=== PATIENT | male | born 1965 | race Caucasian/White ===

== ENCOUNTER → 2017-01-13 | Outpatient (REF) ==
--- NOTE | 2017-01-13 16:23 | Diagnostic Imaging Report ---
INDICATION: Left forearm injury. FINDINGS: AP and lateral views of the left forearm show a nondisplaced greenstick fracture of the distal shaft of the ulna. IMPRESSION: Nondisplaced greenstick fracture of distal left ulna. CRITICAL FINDING Report given to Shira at 4:23 p.m. 01/13/2017/cb Dictated by: Dictated on workstation # [id number]
== END | disposition home or self-care (01) ==
LOC: OCC 15:17
PROVIDERS: ATTEND Nurse Practitioner Family
CPT/HCPCS: 73090

== ENCOUNTER 2020-10-06 21:42 | Emergency (ER) | payer OTHER ==
[~2020-10-06] VITALS: Ht 173 cm; Wt 87.0 kg
[2020-10-06 21:52] VITALS: BP 172/76
[2020-10-06] MEDS ORDERED: LIDOCAINE 1% INJ 20 ML 20 ML VIAL INJ ONE (22:00)
[2020-10-06] MEDS ORDERED: TETANUS,DIPTH,PERTUSS P/F (BOOSTRIX) 0.5 ML VIAL IM ONE (22:00)
--- NOTE | 2020-10-06 22:20 | ED Integumentary General ---
General Chief Complaint: Laceration Stated Complaint: L WRIST LAC Nursing Triage Note: LEFT WRIST LACERATION WHILE PROCESSING A PIG. Source: patient Exam Limitations: no limitations History of Present Illness Date Seen by Provider: Oct 06, 2020 Time Seen by Provider: 22:00 Initial Comments 55-year-old male who presents to the emergency room with complaints of a left outer wrist laceration. He reports he was processing a pig when the knife slipped and cut him. He reports that he is on blood thinners but he was able to get the bleeding to stop on his own. He has normal sensation and movement of his fingers. Timing/Duration: just prior to arrival Associated Symptoms: denies symptoms Allergies and Home Medications Allergies Coded Allergies: No Known Drug Allergies (Unverified , 10/06/20) Patient Home Medication List Home Medication List Reviewed: Yes Review of Systems Review of Systems Constitutional: see HPI; No chills, No fever Skin: see HPI, other (Left outer wrist laceration.) All Other Systems Reviewed Negative Unless Noted: Yes Past Pvfehwj-Urfjwl-Ytzrhz Hx Past Med/Social Hx: Reviewed Nursing Past Med/Soc Hx Patient Social History Alcohol Use: Denies Use Smoking Status: Unknown if Ever Smoked 2nd Hand Smoke Exposure: No Recent Infectious Disease Expo: No Recent Hopitalizations: No Immunizations Up To Date Tetanus Booster (TDap): Less than 5yrs Seasonal Allergies Seasonal Allergies: No Past Medical History Surgeries: No Respiratory: No Cardiac: Yes High Cholesterol, Hypertension Neurological: No Genitourinary: No Gastrointestinal: No Musculoskeletal: No Endocrine: No HEENT: No Cancer: No Psychosocial: No Integumentary: No Blood Disorders: No Family Medical History Reviewed Nursing Family Hx Physical Exam Vital Signs Vital Signs - First Documented 10/06/20 21:52 Temp 36.8 Pulse 74 Resp 16 B/P (MAP) 172/76 (108) Pulse Ox 98 O2 Delivery Room Air Capillary Refill : Less Than 3 Seconds General Appearance: WD/WN, no apparent distress Cardiovascular: normal peripheral pulses, regular rate, rhythm, no edema, no gallop, no JVD, no murmur Respiratory: chest non-tender, lungs clear, normal breath sounds, no respiratory distress, no accessory muscle use Neurologic/Psychiatric: alert, normal mood/affect, oriented x 3 Skin: normal color, warm/dry Skin Problem Location: upper extremities (Left outer wrist, see images for location) Skin Problem Character: linear (Laceration 4 cm in length) Procedures/Interventions Wound Location: Upper Extremities Other Wound Location Left outer wrist Wound Length (cm): 4 Wound Explored: clean Irrigated w/ Saline (ccs): 100 Betadine Prep?: Yes Anesthesia: 1% Lidocaine Volume Anesthetic (ccs): 2 Suture: Prolene Suture Size: 4-0 Number of Sutures: 6 Progress The wound was thoroughly cleaned and irrigated with normal saline and Betasept. Approximately 2 mL of 1% lidocaine without epinephrine was used to anesthetize the area. The wound was closed with 6 simple interrupted sutures of 4-0 Prolene. Sterile dressing was applied. Patient tolerated procedure well. Progress/Results/Core Measures Results/Orders My Orders Orders - IGOR VARGAS Lidocaine 1% Inj 20 Ml (Xylocaine 1% Inj (10/06/20 22:00) Dipht,Pertuss(Acell),Tet Adult (Boostrix (10/06/20 22:00) Medications Given in ED Current Medications Medications Dose Ordered Sig/Benito Route Start Time Stop Time Status Last Admin Dose Admin Lidocaine HCl 20 ml ONCE ONCE INJ 10/06/20 22:00 10/06/20 22:01 DC 10/06/20 21:58 20 ML Vital Signs/I&O 10/06/20 21:52 Temp 36.8 Pulse 74 Resp 16 B/P (MAP) 172/76 (108) Pulse Ox 98 O2 Delivery Room Air Blood Pressure Mean: 108 Departure Impression Primary Impression: Laceration of wrist, left Disposition: 01 HOME, SELF-CARE Condition: Stable/Unchanged Departure-Patient Inst. Decision time for Depature: 22:18 Referrals: NO,LOCAL PHYSICIAN (PCP/Family) Primary Care Physician Patient Instructions: Laceration Repair With Stitches (DC) Add. Discharge Instructions: Watch for signs of infection such as increased redness, swelling, drainage, pain. Change dressing daily or when it becomes soiled. Return back to the emergency room in 7 to 10 days to have the sutures removed. Follow-up with your primary care provider as needed. Return back to emergency room for signs of infection, worsening symptoms, or any other concerns as needed. All discharge instructions reviewed with patient and/or family. Voiced understanding. Images Extremities-Upper 1 - Laceration IGOR VARGAS Oct 06, 2020 22:20
== END 2020-10-06 22:24 | disposition home or self-care (01) ==
LOC: EDUNIT# 21:42 → ER 21:44
DX: S61.512A Laceration without foreign body of left wrist, initial encounter (principal); W26.0XXA Contact with knife, initial encounter
CPT/HCPCS: 12002